=== PATIENT | female | born 1935 | race Caucasian/White ===

== ENCOUNTER 2017-08-30 13:02 | Emergency (ER) | payer MEDICARE, OTHER ==
[2017-08-30] MEDS ORDERED: Sodium Chloride 0.9% 10 ML Syringe FLUSH PRN (13:05)
[2017-08-30 13:55] LABS: CHLORIDE,CL 102 mmol/L (98-107); SODIUM,NA 140 mmol/L (136-145)
--- NOTE | 2017-08-30 15:15 | EDM.PDOC ---
ED HPI GENERAL MEDICAL PROBLEM - General Chief Complaint: General Stated Complaint: DIZZINESS Time Seen by Provider: 08/30/17 13:05 Source of Information: Reports: Patient, Family History Limitations: Reports: No Limitations - History of Present Illness INITIAL COMMENTS - FREE TEXT/NARRATIVE: Patient states she became dizzy today after bending over to gather some items when leaving [place]. She states she has had these episodes in the past. Also complains of cold hands that turn blue which started over the weekend and have done this 1-2 other times since. Relays history of [place] 7 years ago. Takes medication for HTN, hypercholesterolemia, hypothyroid. Surgical history includes hysterectomy with both ovaries left. No removal of gall bladder or appendix. No smoking or illegal drugs. Does drink 1-2 glasses of wine nightly. No complaints of chest pain or SOB. Denies all other symptoms. Onset: Today, Sudden Duration: Improving Severity: Moderate - Related Data Allergies Allergy/AdvReac Type Severity Reaction Status Date / Time Unable to Assess Allergy Unverified 08/30/17 13:21 Home Meds: Home Meds . [Unable to Verify Home Med List] 08/30/17 [History] Past Medical History HEENT History: Reports: Cataract Cardiovascular History: Reports: High Cholesterol, Hypertension, [place] - Past Surgical History HEENT Surgical History: Reports: Adenoidectomy, Cataract Surgery, Tonsillectomy Female Surgical History: Reports: Hysterectomy Musculoskeletal Surgical History: Reports: Knee Replacement Social & Family History - Tobacco Use Smoking Status *Q: Never Smoker - Alcohol Use Days Per Week of Alcohol Use: 5 Number of Drinks Per Day: 2 Total Drinks Per Week: 10 - Recreational Drug Use Recreational Drug Use: No ED ROS GENERAL - Review of Systems Review Of Systems: See Below Constitutional: Reports: No Symptoms HEENT: Reports: No Symptoms Respiratory: Reports: No Symptoms Cardiovascular: Reports: No Symptoms Endocrine: Reports: No Symptoms GI/Abdominal: Reports: No Symptoms : Reports: No Symptoms Musculoskeletal: Reports: No Symptoms Skin: Reports: No Symptoms Neurological: Reports: Dizziness Psychiatric: Reports: No Symptoms Hematologic/Lymphatic: Reports: No Symptoms Immunologic: Reports: No Symptoms ED EXAM, DIZZINESS - Physical Exam Exam: See Below Exam Limited By: No Limitations General Appearance: Alert Eye Exam: Bilateral Eye: EOMI, PERRL Ears: Normal TMs Nose: Normal Inspection, Normal Mucosa, No Blood Throat/Mouth: Normal Inspection, Normal Lips, Normal Teeth, Normal Gums, Normal Oropharynx, Normal Voice, No Airway Compromise Head Exam: Atraumatic, Normocephalic Neck: Normal Inspection, Supple, Non-Tender, Full Range of Motion Respiratory/Chest: No Respiratory Distress, Lungs Clear, Normal Breath Sounds, No Accessory Muscle Use, Chest Non-Tender Cardiovascular: Normal Peripheral Pulses, Regular Rate, Rhythm, No Edema, No Gallop, No JVD, No Murmur, No Rub GI/Abdominal: Normal Bowel Sounds, Soft, Non-Tender, No Organomegaly, No Distention, No Abnormal Bruit, No Mass Neurological: Alert, Normal Mood/Affect, Normal Dorsiflexion, CN II-XII Intact, Normal Plantar Flexion, Normal Gait, Normal Reflexes, No Motor/Sensory Deficits , Oriented x 3 DTR: 2+: Patella (R), Patella (L), Achilles (R), Achilles (L) Back Exam: Normal Inspection, Full Range of Motion, NT Extremities: Normal Inspection, Normal Range of Motion, Non-Tender, No Pedal Edema, Normal Capillary Refill Psychiatric: Normal Affect, Normal Mood Skin Exam: Warm, Dry, Intact, Normal Color, No Rash EKG INTERPRETATION EKG Date: 08/30/17 Time: 13:10 Rhythm: NSR Rate (Beats/Min): 60 [place]: Normal P-Wave: Present QRS: Normal ST-T: Depressed QT: Normal Comparison: NA - No Prior EKG EKG Interpretation Comments: 1. Sinus rhythm 2. minimal ST segment depression 3. Borderline ECG Course - Vital Signs Last Recorded V/S: Last Vital Signs Temp 36.1 C 08/30/17 13:02 Pulse 62 08/30/17 13:02 Resp 16 08/30/17 13:02 BP 136/70 08/30/17 13:02 Pulse Ox 97 08/30/17 13:02 - Orders/Labs/Meds Orders: Active Orders 24 hr Category Date Time Status EKG Documentation Completion [RC] ROUTINE Care 08/30/17 13:05 Ordered Sodium Chloride 0.9% [Saline Flush] Med 08/30/17 13:05 Ordered 10 ml FLUSH ASDIRECTED PRN Saline Lock Insert [OM.PC] Routine Oth 08/30/17 13:05 Ordered Medication Orders Sodium Chloride (Saline Flush) 10 ml FLUSH ASDIRECTED PRN PRN Reason: Keep Vein Open Labs: Laboratory Tests 08/30/17 08/30/17 Range/Units 13:20 13:20 WBC 9.3 (4.0-10.0) x10^3/uL RBC 3.77 L (4.00-5.50) x10^6/uL Hgb 11.6 L (12.0-16.0) g/dL Hct 36.9 (33.0-47.0) % MCV 97.9 H (78.0-93.0) fL MCH 30.8 (26.0-32.0) pg MCHC 31.4 L (32.0-36.0) g/dL RDW Coeff of Swapnil 14.4 (10.0-15.0) % Plt Count 331 (130-400) x10^3/uL Neut % (Auto) 63.0 (50.0-80.0) % Lymph % (Auto) 20.1 L (25.0-50.0) % [place] % (Auto) 11.0 (2.0-11.0) % Eos % (Auto) 5.0 H (0.0-4.0) % Baso % (Auto) 0.9 (0.2-1.2) % Sodium 140 (136-145) mmol/L Potassium 4.0 (3.5-5.1) mmol/L Chloride 102 (98-107) mmol/L Carbon Dioxide 28 (21-32) mmol/L BUN 18 (7-18) mg/dL Creatinine 0.9 (0.55-1.02) mg/dL Est Cr Clr Drug Dosing 48.48 mL/min Estimated GFR (MDRD) > 60 Glucose 139 H (74-106) mg/dL Calcium 8.8 (8.5-10.1) mg/dL Corrected Calcium 8.72 (8.5-10.1) mg/dL Total Bilirubin 0.3 (0.2-1.0) mg/dL AST 21 (15-37) U/L ALT 24 (14-59) U/L Alkaline Phosphatase 71 (46-116) U/L Troponin I < 0.017 (<=0.056) ng/mL NT-Pro-B Natriuret Pep 410 (<=450) pg/mL Total Protein 7.4 (6.4-8.2) g/dL Albumin 4.1 (3.4-5.0) g/dL Globulin 3.3 Albumin/Globulin Ratio 1.24 Meds: Medications Generic Name Dose Route Start Last Admin Trade Name Esther PRN Reason Stop Dose Admin Sodium Chloride 10 ml 08/30/17 13:05 Saline Flush FLUSH ASDIRECTED PRN Keep Vein Open Departure - Departure Time of Disposition: 15:15 Disposition: Home, Self-Care 01 Condition: Good Clinical Impression: Dizziness - Discharge Information Instructions: Orthostatic Hypotension Referrals: Cinthia Holloway, [Primary Care Provider] - Forms: ED Department Discharge Additional Instructions: I would recommend that you follow up with Dr. Holloway for any additional symptoms. Stay well hydrated. Your labs and values were all non emergent today. Please call with any questions or concerns. - Problem List & Annotations (1) Dizziness SNOMED Code(s): 180549538 Code(s): R42 - DIZZINESS AND GIDDINESS Status: Acute Priority: Low Current Visit: Yes - Problem List Review Problem List Initiated/Reviewed/Updated: Yes - My Orders Last 24 Hours: My Active Orders 08/30/17 13:05 EKG Documentation Completion [RC] ROUTINE Sodium Chloride 0.9% [Saline Flush] 10 ml FLUSH ASDIRECTED PRN Saline Lock Insert [OM.PC] Routine - Assessment/Plan Last 24 Hours: My Active Orders 08/30/17 13:05 EKG Documentation Completion [RC] ROUTINE Sodium Chloride 0.9% [Saline Flush] 10 ml FLUSH ASDIRECTED PRN Saline Lock Insert [OM.PC] Routine Assessment:: orthostatic hypotension Plan: I would recommend that you follow up with Dr. Holloway for any additional symptoms. Stay well hydrated. Your labs and values were all non emergent today. Please call with any questions or concerns.
== END 2017-08-30 15:40 | disposition home or self-care (01) ==
LOC: VM.ED 13:02
DX: I95.1 Orthostatic hypotension (principal); I10 Essential (primary) hypertension; I25.2 Old myocardial infarction; E78.00 Pure hypercholesterolemia, unspecified; E03.9 Hypothyroidism, unspecified
CPT/HCPCS: 36415; 80053; 83880; 84484; 85025; 93005; 99283-GF; 99284

== ENCOUNTER 2019-01-06 17:31 | Emergency (ER) | payer MEDICARE, OTHER ==
--- NOTE | 2019-01-06 18:07 | EDM.PDOC ---
ED HPI GENERAL MEDICAL PROBLEM - General Chief Complaint: Upper Extremity Injury/Pain Stated Complaint: FALL Time Seen by Provider: 01/06/19 17:45 Source of Information: Reports: Patient History Limitations: Reports: No Limitations - History of Present Illness INITIAL COMMENTS - FREE TEXT/NARRATIVE: Pt. presents to ER with complaints of L shoulder pain. Pt. states that she was walking down an embankment and landed on the lateral aspect of the shoulder. Denies striking head. No neck pain. Pt. states that her discomfort is located primarily in the mid humeral region and anterior shoulder. She has increased pain with movement of the joint. No numbness/tingling in the extremity. No pain/ deformity to the elbow, forearm, wrist, or hand. Pt. also complained of some mild, L sided anterior lower rib pain. Denies any shortness of breath. No abdominal pain. No pelvic pain. She was able to ambulate without difficulty. Onset: Today Onset Date: 01/06/19 Location: Reports: Upper Extremity, Left Quality: Reports: Ache, Throbbing Severity: Moderate Improves with: Reports: Rest Worsens with: Reports: Movement Left Shoulder Pain Score (Numeric/FACES): 9 - Related Data Allergies Allergy/AdvReac Type Severity Reaction Status Date / Time cefaclor [From Ceclor] Allergy Rash Verified 01/06/19 18:13 clarithromycin [From Biaxin] Allergy Rash Verified 01/06/19 18:13 clindamycin Allergy Rash Verified 01/06/19 18:13 hydrochlorothiazide Allergy Rash Verified 01/06/19 18:13 nitrofurantoin Allergy Rash Verified 01/06/19 18:13 [From Macrodantin] Sulfa (Sulfonamide Allergy Wheezing Verified 01/06/19 18:13 Antibiotics) bee stings Allergy Hives Uncoded 01/06/19 18:13 Home Meds: Home Meds Aspirin 81 mg DAILY 01/06/19 [History] Budesonide/Formoterol [Symbicort 80-4.5 MCG] 2 puff INH BID 01/06/19 [History] Calcium Citrate/Vitamin D3 [Calcium Citrate - Vit D3 Tab] 1 cap BID 01/06/19 [ History] Cetirizine [ZyrTEC] 10 mg DAILY 01/06/19 [History] Citalopram [Citalopram HBr] 20 mg DAILY 01/06/19 [History] Ferrous Sulfate 325 mg DAILY 01/06/19 [History] Furosemide 10 mg DAILY 01/06/19 [History] Gabapentin [Neurontin] 100 mg BID 01/06/19 [History] Gabapentin [Neurontin] 300 mg BEDTIME 01/06/19 [History] Ketoconazole [Nizoral 2% Crm] 1 applic DAILY 01/06/19 [History] Levothyroxine 75 mcg DAILY 01/06/19 [History] Simvastatin 20 mg DAILY 01/06/19 [History] tiZANidine HCl [Tizanidine HCl] 2 mg TID PRN 01/06/19 [History] Past Medical History HEENT History: Reports: Cataract Cardiovascular History: Reports: High Cholesterol, Hypertension, [place] - Past Surgical History HEENT Surgical History: Reports: Adenoidectomy, Cataract Surgery, Tonsillectomy Female Surgical History: Reports: Hysterectomy Musculoskeletal Surgical History: Reports: Knee Replacement Social & Family History - Tobacco Use Smoking Status *Q: Never Smoker - Alcohol Use Days Per Week of Alcohol Use: 5 Number of Drinks Per Day: 2 Total Drinks Per Week: 10 - Recreational Drug Use Recreational Drug Use: No Review of Systems - Review of Systems Review Of Systems: See Below Constitutional: Reports: No Symptoms Eyes: Reports: No Symptoms Ears: Reports: No Symptoms Nose: Reports: No Symptoms Mouth/Throat: Reports: No Symptoms Respiratory: Reports: No Symptoms Cardiovascular: Reports: No Symptoms GI/Abdominal: Reports: No Symptoms Genitourinary: Reports: No Symptoms Musculoskeletal: Reports: Shoulder Pain, Arm Pain Skin: Reports: No Symptoms Neurological: Reports: No Symptoms Psychiatric: Reports: No Symptoms ED EXAM, GENERAL - Physical Exam Exam: See Below Exam Limited By: No Limitations General Appearance: Alert, WD/WN, No Apparent Distress Eye Exam: Bilateral Eye: EOMI Nose: Normal Inspection Head: Atraumatic, Normocephalic Neck: Normal Inspection, Supple, Non-Tender, Full Range of Motion. No: Tender Lateral, Tender Midline Respiratory/Chest: No Respiratory Distress Course - Vital Signs Last Recorded V/S: Last Vital Signs Temp 36.8 C 01/06/19 17:31 Pulse 67 01/06/19 17:31 Resp 16 01/06/19 17:31 BP 171/66 H 01/06/19 17:31 Pulse Ox 100 01/06/19 17:31 - Orders/Labs/Meds Orders: Active Orders 24 hr Category Date Time Status Chest 1V Frontal [CR] Stat Exams 01/06/19 18:39 Ordered Acetaminophen/HYDROcodone [Take Home: Acetam/HYDROcodon Med 01/06/19 19:02 Once 325-5 MG, 5 Pack] 1 packet PO ONETIME ONE Medication Orders Hydrocodone Bitart/Acetaminophen (Take Home: Acetam/Hydrocodon 325-5 Mg, 5 Pack ) 1 packet PO ONETIME ONE Stop: 01/06/19 19:03 Meds: Medications Generic Name Dose Route Start Last Admin Trade Name Freq PRN Reason Stop Dose Admin Hydrocodone Bitart/Acetaminophen 1 packet 01/06/19 19:02 Take Home: Acetam/Hydrocodon 325-5 Mg, 5 Pack PO 01/06/19 19:03 ONETIME ONE - Radiology Interpretation Free Text/Narrative:: Comminuted Humeral neck fx. and possible clavicle fracture. Departure - Departure Time of Disposition: 19:04 Disposition: Home, Self-Care 01 Condition: Good Clinical Impression: Fracture of humerus - Discharge Information Instructions: Humerus Fracture Treated With Immobilization, [id number] Referrals: Cinthia Holloway DO [Primary Care Provider] - Forms: ED Department Discharge Additional Instructions: [place] 5/325mg 1 tab every 4-6 hours as needed for pain Keep shoulder immobilizer on even at night. You can take it off to shower but do not move the shoulder. I am setting you up an appointment with [facility] and the clinic will contact you tomorrow with an appointment date and time. - My Orders Last 24 Hours: My Active Orders 01/06/19 18:39 Chest 1V Frontal [CR] Stat 01/06/19 19:02 Acetaminophen/HYDROcodone [Take Home: Acetam/HYDROcodon 325-5 MG, 5 Pack] 1 packet PO ONETIME ONE - Assessment/Plan Last 24 Hours: My Active Orders 01/06/19 18:39 Chest 1V Frontal [CR] Stat 01/06/19 19:02 Acetaminophen/HYDROcodone [Take Home: Acetam/HYDROcodon 325-5 MG, 5 Pack] 1 packet PO ONETIME ONE Plan: Sharon 5/325mg 1 tab every 4-6 hours as needed for pain Keep shoulder immobilizer on even at night. You can take it off to shower but do not move the shoulder. I am setting you up an appointment with [facility] and the clinic will contact you tomorrow with an appointment date and time.
--- NOTE | 2019-01-06 18:41 | CR ---
[id number] RAD/RAD Humerus Left 2V EXAM: RAD Humerus Left 2V CLINICAL DATA: TRAUMA COMPARISON: NO PREVIOUS SIMILAR EXAM IS AVAILABLE. FINDINGS: A comminuted impacted left humeral neck fracture is seen with also an apparent distal left clavicular fracture. IMPRESSION: IMPACTED DEFINITE COMMINUTED LEFT HUMERAL NECK FRACTURE. QUESTION OF DISTAL LEFT CLAVICULAR FRACTURE VERSUS SOFT TISSUES MIMICKING SUCH. Rohit Pierre MD 01/06/19 1993 Thank you for allowing us to participate in the care of your patient.
--- NOTE | 2019-01-06 18:42 | CR ---
[id number] RAD/RAD Shoulder Left 2V Min EXAM: RAD Shoulder Left 2V Min CLINICAL DATA: TRAUMA COMPARISON: NO PREVIOUS SIMILAR EXAM IS AVAILABLE. FINDINGS: There is no definite distal left clavicular fracture. There is however an comminuted impacted left humeral neck fracture.. IMPRESSION: LEFT HUMERAL NECK FRACTURE ONLY. Rohit Pierre MD 01/06/19 [id number] Thank you for allowing us to participate in the care of your patient.
[2019-01-06] MEDS ORDERED: Take Home: Acetaminophen/HYDROcodone 325-5 MG, 5 Tab Pack PO ONE (19:02)
--- NOTE | 2019-01-06 19:43 | CR ---
[id number] RAD/RAD Chest PA or AP 1V EXAM: SINGLE VIEW CHEST. INDICATION: TRAUMA. RIB PAIN COMPARISON: CORRELATION IS MADE WITH THE EXAM OF SEPTEMBER 06, 2017. FINDINGS: The lungs are clear. There is no pneumothorax. The cardiomediastinal contour is stable. No obvious recent rib fractures are seen. IMPRESSION: NO ACUTE PROCESS. Rohit Pierre MD 01/06/19 1945 Thank you for allowing us to participate in the care of your patient.
== END 2019-01-06 19:30 | disposition home or self-care (01) ==
LOC: VM.ED 17:31
DX: S42.352A Displaced comminuted fracture of shaft of humerus, left arm, initial encounter for closed fracture (principal); E78.00 Pure hypercholesterolemia, unspecified; I10 Essential (primary) hypertension; I25.2 Old myocardial infarction; Z88.8 Allergy status to other drugs, medicaments and biological substances; Z88.1 Allergy status to other antibiotic agents; Z79.899 Other long term (current) drug therapy; Z79.82 Long term (current) use of aspirin; W18.39XA Other fall on same level, initial encounter
CPT/HCPCS: 71045; 73030; 73060; 99284; A9270

== ENCOUNTER 2024-01-15 08:51 | Emergency (ER) | payer MEDICARE, OTHER ==
[2024-01-15 09:32] LABS: BASOPHILS ABSOLUTE AUTO 0.1 x10^3/uL (0.0-0.2); EOSINOPHILS ABSOLUTE AUTO 0.6 x10^3/uL (0.0-0.5); EOSINOPHILS PERCENT AUTO 5.9 % (0.0-4.0); HEMATOCRIT 35.8 % (33.0-47.0); HEMOGLOBIN 11.7 g/dL (12.0-16.0); IMMATURE GRAN ABSOLUTE AUTO 0.03 x10^3/uL (0.00-0.07); LYMPHOCYTES ABSOLUTE AUTO 1.6 x10^3/uL (1.0-4.8); LYMPHOCYTES PERCENT AUTO 15.6 % (25.0-50.0); MEAN CORPUSCULAR HEMOGLOBIN 30.5 pg (26.0-32.0); MEAN CORPUSCULAR HGB CONC 32.7 g/dL (32.0-36.0); MEAN CORPUSCULAR VOLUME 93.2 fL (78.0-93.0); MONOCYTES ABSOLUTE AUTO 1.1 x10^3/uL (0.0-0.8); MONOCYTES PERCENT AUTO 11.4 % (2.0-11.0); NEUTROPHILS ABSOLUTE AUTO 6.6 x10^3/uL (1.8-7.7); NEUTROPHILS PERCENT AUTO 65.8 % (50.0-80.0); PLATELET COUNT,PLT 381 x10^3/uL (130-400); RED BLOOD CELL COUNT 3.84 x10^6/uL (4.00-5.50)
[2024-01-15] MEDS: Albuterol/Ipratropium 3.0-0.5 MG/3 ML Neb Soln NEB ONE (09:41)
[2024-01-15 09:43] LABS: ANION GAP 11.6 mmol/L (5-15); BLOOD UREA NITROGEN,BUN 10 mg/dL (7-18); CALCIUM 9.6 mg/dL (8.5-10.1); CARBON DIOXIDE,CO2 30 mmol/L (21-32); CHLORIDE,CL 103 mmol/L (98-107); CREATININE 0.9 mg/dL (0.55-1.02); ESTIMATED GFR 62 mL/min (>=60); GLUCOSE RANDOM 129 mg/dL (70-99); POTASSIUM,K 3.6 mmol/L (3.5-5.1); SODIUM,NA 141 mmol/L (136-145)
[2024-01-15] MEDS: predniSONE 20 MG Tab PO ONE (10:57)
[2024-01-15] MEDS: Amoxicillin/Clavulanate K 875-125 MG Tab PO ONE (10:57)
[2024-01-16] MEDS ORDERED: predniSONE 20 MG Tab PO ONE (10:50)
== END 2024-01-15 11:09 | disposition home or self-care (01) ==
LOC: VM.ED 08:51
DX: J44.1 Chronic obstructive pulmonary disease with (acute) exacerbation (principal); I10 Essential (primary) hypertension; I25.10 Atherosclerotic heart disease of native coronary artery without angina pectoris; E78.00 Pure hypercholesterolemia, unspecified; I25.2 Old myocardial infarction; J44.9 Chronic obstructive pulmonary disease, unspecified; E03.9 Hypothyroidism, unspecified; Z90.710 Acquired absence of both cervix and uterus; Z79.82 Long term (current) use of aspirin; Z79.899 Other long term (current) drug therapy; Z79.890 Hormone replacement therapy; Z79.2 Long term (current) use of antibiotics; Z79.51 Long term (current) use of inhaled steroids; Z88.0 Allergy status to penicillin; Z88.1 Allergy status to other antibiotic agents; Z91.030 Bee allergy status; Z88.8 Allergy status to other drugs, medicaments and biological substances
CPT/HCPCS: 71046; 80048; 83605; 85025; 99285; A9270; J7512; J7620-GY

== ENCOUNTER 2024-09-11 13:54 | Inpatient (IN) | payer MEDICARE, OTHER ==
[2024-09-11] MEDS ORDERED: Sodium Chloride 0.9% 10 ML Syringe FLUSH PRN (14:20)
[2024-09-11] MEDS: Albuterol/Ipratropium 3.0-0.5 MG/3 ML Neb Soln NEB ONE (14:22)
[2024-09-11 14:31] LABS: BASOPHILS PERCENT AUTO 0.1 % (0.2-1.2); EOSINOPHILS ABSOLUTE AUTO 0.1 x10^3/uL (0.0-0.5); EOSINOPHILS PERCENT AUTO 0.3 % (0.0-4.0); HEMATOCRIT 34.2 % (33.0-47.0); HEMOGLOBIN 11.5 g/dL (12.0-16.0); IMMATURE GRAN ABSOLUTE AUTO 0.02 x10^3/uL (0.00-0.07); LYMPHOCYTES ABSOLUTE AUTO 0.7 x10^3/uL (1.0-4.8); LYMPHOCYTES PERCENT AUTO 4.7 % (25.0-50.0); MEAN CORPUSCULAR HEMOGLOBIN 31.3 pg (26.0-32.0); MEAN CORPUSCULAR HGB CONC 33.6 g/dL (32.0-36.0); MEAN CORPUSCULAR VOLUME 92.9 fL (78.0-93.0); MONOCYTES ABSOLUTE AUTO 0.6 x10^3/uL (0.0-0.8); MONOCYTES PERCENT AUTO 3.9 % (2.0-11.0); NEUTROPHILS ABSOLUTE AUTO 13.5 x10^3/uL (1.8-7.7); NEUTROPHILS PERCENT AUTO 90.9 % (50.0-80.0); PLATELET COUNT,PLT 308 x10^3/uL (130-400); RED BLOOD CELL COUNT 3.68 x10^6/uL (4.00-5.50); WHITE BLOOD CELL COUNT,WBC 14.9 x10^3/uL (4.0-10.0)
[2024-09-11 14:48] LABS: A/G RATIO 0.95; ALANINE AMINOTRANSFERASE,ALT 23 U/L (14-59); ALBUMIN 3.6 g/dL (3.4-5.0); ALKALINE PHOSPHATASE 72 U/L (46-116); ANION GAP 17.8 mmol/L (5-15); ASPARTATE AMNIOTRANSFERASE,AST 26 U/L (15-37); BILIRUBIN TOTAL 0.7 mg/dL (0.2-1.0); BLOOD UREA NITROGEN,BUN 14 mg/dL (7-18); CALCIUM 9.4 mg/dL (8.5-10.1); CARBON DIOXIDE,CO2 24 mmol/L (21-32); CHLORIDE,CL 99 mmol/L (98-107); CREATININE 0.8 mg/dL (0.55-1.02); ESTIMATED GFR 71 mL/min (>=60); GLUCOSE RANDOM 167 mg/dL (70-99); MAGNESIUM 1.9 mg/dL (1.8-2.4); POTASSIUM,K 3.8 mmol/L (3.5-5.1); PROTEIN TOTAL,TP 7.4 g/dL (6.4-8.2); SODIUM,NA 137 mmol/L (136-145)
[2024-09-11 15:48] LABS: APPEARANCE,URINE CLEAR (CLEAR); BILIRUBIN,URINE NEGATIVE (NEGATIVE); COLOR,URINE YELLOW (YELLOW); GLUCOSE,URINE NEGATIVE (NEGATIVE); KETONES,URINE NEGATIVE (NEGATIVE); LEUKOCYTE ESTERASE,URINE NEGATIVE (NEGATIVE); NITRITE,URINE NEGATIVE (NEGATIVE); OCCULT BLOOD,URINE NEGATIVE (NEGATIVE); PROTEIN,URINE TRACE mg/dL (NEGATIVE); UROBILINOGEN,URINE 0.2 EU/dL (0.2)
[2024-09-11] MEDS: Sodium Chloride 0.9% 1,000 ML IV SCH (15:49)
[2024-09-11 15:50] LABS: BACTERIA,URINE RARE /HPF (NOT SEEN); MUCUS,URINE FEW /LPF (NOT SEEN); RBC,URINE 0-5 /HPF (NOT SEEN); SQUAMOUS EPITHELIAL CELLS,UR OCCASIONAL /HPF (NOT SEEN); WBC,URINE 0-5 /HPF (NOT SEEN)
[2024-09-11] MEDS: Levofloxacin 500 MG Tab PO SCH (18:00)
[2024-09-11] MEDS: Arformoterol 15 MCG/2 ML Neb Soln NEB SCH (18:15)
[2024-09-11] MEDS: methylPREDNISolone Sodium Succinate 40 MG/1 ML SDV IVPUSH SCH ×2 (18:25→18:39)
[2024-09-11] MEDS: Albuterol/Ipratropium 3.0-0.5 MG/3 ML Neb Soln NEB PRN (18:26)
[2024-09-11] MEDS ORDERED: QUEtiapine 25 MG Tab PO PRN (18:52)
[2024-09-11] MEDS ORDERED: Oseltamivir 75 MG Cap PO SCH ×2 (21:00)
[2024-09-11] MEDS: Acetaminophen 500 MG Tab PO PRN (21:35)
[2024-09-11] MEDS: Oseltamivir 30 MG Cap PO SCH (21:36)
[2024-09-11] MEDS: Gabapentin 300 MG Cap PO SCH (21:36)
[2024-09-11] MEDS: ALPRAZolam 0.25 MG Tab PO PRN (23:06)
[2024-09-12 06:56] LABS: BASOPHILS PERCENT AUTO 0.2 % (0.2-1.2); EOSINOPHILS PERCENT AUTO 0.1 % (0.0-4.0); HEMATOCRIT 30.2 % (33.0-47.0); IMMATURE GRAN ABSOLUTE AUTO 0.02 x10^3/uL (0.00-0.07); LYMPHOCYTES ABSOLUTE AUTO 0.6 x10^3/uL (1.0-4.8); MEAN CORPUSCULAR HEMOGLOBIN 31.2 pg (26.0-32.0); MEAN CORPUSCULAR HGB CONC 33.1 g/dL (32.0-36.0); MEAN CORPUSCULAR VOLUME 94.1 fL (78.0-93.0); MONOCYTES ABSOLUTE AUTO 0.9 x10^3/uL (0.0-0.8); MONOCYTES PERCENT AUTO 8.9 % (2.0-11.0); NEUTROPHILS PERCENT AUTO 84.6 % (50.0-80.0); PLATELET COUNT,PLT 268 x10^3/uL (130-400); RED BLOOD CELL COUNT 3.21 x10^6/uL (4.00-5.50); WHITE BLOOD CELL COUNT,WBC 10.6 x10^3/uL (4.0-10.0)
[2024-09-12 07:12] LABS: CALCIUM 8.7 mg/dL (8.5-10.1); CREATININE 0.6 mg/dL (0.55-1.02); EST CRCL DRUG DOSING (CG) 64.24 mL/min; POTASSIUM,K 4.1 mmol/L (3.5-5.1)
[2024-09-12 07:13] LABS: ANION GAP 14.1 mmol/L (5-15)
[2024-09-12] MEDS ORDERED: Loratadine 10 MG Tab PO PRN (09:17)
[2024-09-12] MEDS: Enoxaparin 40 MG/0.4 ML Syringe SUBCUT SCH (09:17)
[2024-09-12] MEDS: Doxycycline Monohydrate 100 MG Cap PO SCH (09:39)
[2024-09-12] MEDS: Citalopram 20 MG Tab PO SCH (09:39)
[2024-09-12] MEDS: Calcium Citrate/Vitamin D3 315 MG-250 Unit Tab PO SCH (18:08)
[2024-09-12] MEDS: atorvaSTATin 10 MG Tab PO SCH (20:58)
[2024-09-13] MEDS: Levothyroxine 75 MCG Tab PO SCH (06:21)
[2024-09-13 08:04] LABS: EOSINOPHILS ABSOLUTE AUTO 0.1 x10^3/uL (0.0-0.5); EOSINOPHILS PERCENT AUTO 0.5 % (0.0-4.0); HEMATOCRIT 33.5 % (33.0-47.0); HEMOGLOBIN 11.1 g/dL (12.0-16.0); IMMATURE GRAN ABSOLUTE AUTO 0.02 x10^3/uL (0.00-0.07); LYMPHOCYTES PERCENT AUTO 6.8 % (25.0-50.0); MEAN CORPUSCULAR HEMOGLOBIN 30.9 pg (26.0-32.0); MEAN CORPUSCULAR HGB CONC 33.1 g/dL (32.0-36.0); MEAN CORPUSCULAR VOLUME 93.3 fL (78.0-93.0); MONOCYTES ABSOLUTE AUTO 0.9 x10^3/uL (0.0-0.8); MONOCYTES PERCENT AUTO 6.4 % (2.0-11.0); NEUTROPHILS ABSOLUTE AUTO 12.6 x10^3/uL (1.8-7.7); NEUTROPHILS PERCENT AUTO 86.2 % (50.0-80.0); PLATELET COUNT,PLT 359 x10^3/uL (130-400); RED BLOOD CELL COUNT 3.59 x10^6/uL (4.00-5.50); WHITE BLOOD CELL COUNT,WBC 14.6 x10^3/uL (4.0-10.0)
[2024-09-13 08:11] LABS: CALCIUM 9.5 mg/dL (8.5-10.1); CREATININE 0.7 mg/dL (0.55-1.02); EST CRCL DRUG DOSING (CG) 55.06 mL/min; POTASSIUM,K 3.6 mmol/L (3.5-5.1)
[2024-09-13 08:12] LABS: ANION GAP 15.6 mmol/L (5-15)
[2024-09-13] MEDS: Folic Acid 0.4 MG Tab PO SCH (09:05)
[2024-09-13] MEDS: Furosemide 20 MG Tab PO SCH (12:04)
[2024-09-14] MEDS: Losartan 25 MG Tab PO SCH (10:46)
[2024-09-15 07:04] LABS: BASOPHILS PERCENT AUTO 0.1 % (0.2-1.2); EOSINOPHILS PERCENT AUTO 0.2 % (0.0-4.0); HEMATOCRIT 33.4 % (33.0-47.0); HEMOGLOBIN 11.1 g/dL (12.0-16.0); LYMPHOCYTES ABSOLUTE AUTO 1.3 x10^3/uL (1.0-4.8); LYMPHOCYTES PERCENT AUTO 8.5 % (25.0-50.0); MEAN CORPUSCULAR HEMOGLOBIN 30.9 pg (26.0-32.0); MEAN CORPUSCULAR HGB CONC 33.2 g/dL (32.0-36.0); MONOCYTES PERCENT AUTO 6.4 % (2.0-11.0); NEUTROPHILS ABSOLUTE AUTO 13.1 x10^3/uL (1.8-7.7); NEUTROPHILS PERCENT AUTO 84.2 % (50.0-80.0); PLATELET COUNT,PLT 419 x10^3/uL (130-400); RED BLOOD CELL COUNT 3.59 x10^6/uL (4.00-5.50); WHITE BLOOD CELL COUNT,WBC 15.6 x10^3/uL (4.0-10.0)
[2024-09-15 07:14] LABS: ANION GAP 12.9 mmol/L (5-15); CREATININE 0.8 mg/dL (0.55-1.02); EST CRCL DRUG DOSING (CG) 48.18 mL/min; POTASSIUM,K 3.9 mmol/L (3.5-5.1)
[2024-09-15] MEDS: predniSONE 20 MG Tab PO SCH (09:18)
[2024-09-15] MEDS: Furosemide 20 MG Tab PO SCH (09:18)
[2024-09-17] MEDS ORDERED: Cyanocobalamin (Vitamin B12) 1,000 MCG/ML SDV IM SCH (09:00)
== END 2024-09-15 09:40 | disposition home or self-care (01) | DRG 202 ==
LOC: VM.ED 13:54 → VM.MS 15:52
PROVIDERS: ADMIT Internal Medicine; ATTEND Internal Medicine
DX: J45.41 Moderate persistent asthma with (acute) exacerbation (principal); E87.20 Acidosis, unspecified; J10.1 Influenza due to other identified influenza virus with other respiratory manifestations; Z66 Do not resuscitate; H91.90 Unspecified hearing loss, unspecified ear; I25.10 Atherosclerotic heart disease of native coronary artery without angina pectoris; E78.00 Pure hypercholesterolemia, unspecified; I10 Essential (primary) hypertension; J44.9 Chronic obstructive pulmonary disease, unspecified; M19.90 Unspecified osteoarthritis, unspecified site; M06.9 Rheumatoid arthritis, unspecified; E03.9 Hypothyroidism, unspecified; Z96.659 Presence of unspecified artificial knee joint; R44.1 Visual hallucinations; Z91.030 Bee allergy status; R73.03 Prediabetes; E78.5 Hyperlipidemia, unspecified; D64.9 Anemia, unspecified; Z88.8 Allergy status to other drugs, medicaments and biological substances; Z88.1 Allergy status to other antibiotic agents; Z88.2 Allergy status to sulfonamides; Z79.82 Long term (current) use of aspirin; Z79.899 Other long term (current) drug therapy; Z79.2 Long term (current) use of antibiotics; I25.2 Old myocardial infarction; Z90.89 Acquired absence of other organs; Z98.49 Cataract extraction status, unspecified eye; Z90.710 Acquired absence of both cervix and uterus
CPT/HCPCS: 36415; 71046; 80048; 80053; 81001; 82947; 83605; 83735; 84145; 85025; 86140; 87040; 94640; 97162-GP; 97165-GO; 97535-GO; 99284; 99285; A9270-GY; J1650; J2919; J3490; J7030; J7512; J7620-GY

== ENCOUNTER 2025-04-16 08:18 | Inpatient (IN) | payer MEDICARE, OTHER ==
[2025-04-16 08:47] LABS: BASOPHILS ABSOLUTE AUTO 0.0 x10^3/uL (0.0-0.2); BASOPHILS PERCENT AUTO 0.2 % (0.2-1.2); EOSINOPHILS ABSOLUTE AUTO 0.1 x10^3/uL (0.0-0.5); EOSINOPHILS PERCENT AUTO 0.3 % (0.0-4.0); IMMATURE GRAN ABSOLUTE AUTO 0.03 x10^3/uL (0.00-0.07); IMMATURE GRAN PERCENT AUTO 0.20 % (0.00-0.43); LYMPHOCYTES ABSOLUTE AUTO 1.1 x10^3/uL (1.0-4.8); LYMPHOCYTES PERCENT AUTO 5.6 % (25.0-50.0); MONOCYTES ABSOLUTE AUTO 1.6 x10^3/uL (0.0-0.8); MONOCYTES PERCENT AUTO 8.2 % (2.0-11.0); NEUTROPHILS ABSOLUTE AUTO 16.6 x10^3/uL (1.8-7.7); NEUTROPHILS PERCENT AUTO 85.5 % (50.0-80.0); RED BLOOD CELL COUNT 3.67 x10^6/uL (4.00-5.50); WHITE BLOOD CELL COUNT,WBC 19.5 x10^3/uL (4.0-10.0)
[2025-04-16 08:57] LABS: PLATELET COUNT,PLT 240 x10^3/uL (130-400)
[2025-04-16] MEDS: methylPREDNISolone Sodium Succinate 125 MG/2 ML SDV IV ONE (08:57)
[2025-04-16 09:05] LABS: INR 1.0 (0.9-1.1); PTT,PARTIAL THROMBOPLSTIN TIME 28.9 SEC (23.5-33.2)
[2025-04-16 09:07] LABS: A/G RATIO 1.19; ALANINE AMINOTRANSFERASE,ALT 20 U/L (14-59); ASPARTATE AMNIOTRANSFERASE,AST 23 U/L (15-37); BILIRUBIN TOTAL 0.6 mg/dL (0.2-1.0); BLOOD UREA NITROGEN,BUN 13 mg/dL (7-18); CARBON DIOXIDE,CO2 29 mmol/L (21-32); CHLORIDE,CL 102 mmol/L (98-107); CREATININE 1.0 mg/dL (0.55-1.02); ESTIMATED GFR 54 mL/min (>=60); GLUCOSE RANDOM 131 mg/dL (70-99); POTASSIUM,K 4.1 mmol/L (3.5-5.1); PROTEIN TOTAL,TP 6.8 g/dL (6.4-8.2); SODIUM,NA 140 mmol/L (136-145)
[2025-04-16 10:03] LABS: LACTIC ACID 1.4 mmol/L (0.4-2.0)
[2025-04-16] MEDS ORDERED: Ondansetron 4 MG Tab.DIS PO PRN (11:36)
[2025-04-16] MEDS: Albuterol 0.083% 2.5 MG/3 ML Neb Soln NEB PRN (12:24)
[2025-04-16] MEDS: Arformoterol 15 MCG/2 ML Neb Soln NEB SCH (15:00)
[2025-04-16] MEDS ORDERED: 50% Dextrose in Water 50 ML Syringe IVPUSH PRN (17:20)
[2025-04-16] MEDS: Calcium Citrate/Vitamin D3 315 MG-250 Unit Tab PO SCH (17:32)
[2025-04-16] MEDS: Insulin Glarg,Human.Rec.Analog 100 Unit/ML 10 ML Vial SUBCUT SCH (17:32)
[2025-04-16] MEDS: Budesonide 0.5 MG/2 ML Neb Susp NEB SCH (20:39)
[2025-04-16] MEDS: Fluticasone Propionate Nasal Spray 9.9 ML BOTTLE NASBOTH SCH (20:40)
[2025-04-17 06:47] LABS: PLATELET COUNT,PLT 227 x10^3/uL (130-400); RED BLOOD CELL COUNT 3.28 x10^6/uL (4.00-5.50)
[2025-04-17 06:50] LABS: WHITE BLOOD CELL COUNT,WBC 26.5 x10^3/uL (4.0-10.0)
[2025-04-17 06:53] LABS: BLOOD UREA NITROGEN,BUN 15.0 mg/dL (7-18); CARBON DIOXIDE,CO2 26.0 mmol/L (21-32); CHLORIDE,CL 103.0 mmol/L (98-107); CREATININE 0.9 mg/dL (0.55-1.02); EST CRCL DRUG DOSING (CG) 42.02 mL/min; ESTIMATED GFR 61.0 mL/min (>=60); GLUCOSE RANDOM 140.0 mg/dL (70-99); POTASSIUM,K 3.6 mmol/L (3.5-5.1); SODIUM,NA 140.0 mmol/L (136-145)
[2025-04-17 07:01] LABS: BAND PERCENT MAN 1 % (0-6); LYMPHOCYTES ABSOLUTE MAN 1.3 x10^3/uL (1.0-4.8); LYMPHOCYTES PERCENT MAN 5 % (25-50); MONOCYTES ABSOLUTE MAN 1.3 x10^3/uL (0.0-0.8); MONOCYTES PERCENT MAN 5 % (2-11); NEUTROPHILS ABSOLUTE MAN 23.9 x10^3/uL (1.8-7.7); PLATELET COUNT ESTIMATE ADEQUATE; SEG NEUTROPHILS PERCENT MAN 89 % (50-80)
[2025-04-17] MEDS: Formoterol/Mometasone 100-5 MCG 8.8 GM Inhaler INH SCH (10:09)
[2025-04-17] MEDS: Sodium Chloride 0.9% 10 ML Syringe FLUSH PRN (20:37)
[2025-04-18 07:42] LABS: PLATELET COUNT,PLT 275 x10^3/uL (130-400); RED BLOOD CELL COUNT 3.30 x10^6/uL (4.00-5.50); WHITE BLOOD CELL COUNT,WBC 19.3 x10^3/uL (4.0-10.0)
[2025-04-18 07:56] LABS: BLOOD UREA NITROGEN,BUN 18.0 mg/dL (7-18); CARBON DIOXIDE,CO2 27.0 mmol/L (21-32); CHLORIDE,CL 108.0 mmol/L (98-107); CREATININE 0.8 mg/dL (0.55-1.02); EST CRCL DRUG DOSING (CG) 47.27 mL/min; GLUCOSE RANDOM 102.0 mg/dL (70-99); POTASSIUM,K 3.8 mmol/L (3.5-5.1); SODIUM,NA 142.0 mmol/L (136-145)
[2025-04-18 08:21] LABS: ESTIMATED GFR 71.0 mL/min (>=60)
[2025-04-18 08:22] LABS: BAND PERCENT MAN 2 % (0-6); LYMPHOCYTES ABSOLUTE MAN 1.5 x10^3/uL (1.0-4.8); LYMPHOCYTES PERCENT MAN 8 % (25-50); MONOCYTES ABSOLUTE MAN 0.6 x10^3/uL (0.0-0.8); MONOCYTES PERCENT MAN 3 % (2-11); NEUTROPHILS ABSOLUTE MAN 17.2 x10^3/uL (1.8-7.7); PLATELET COUNT ESTIMATE ADEQUATE; SEG NEUTROPHILS PERCENT MAN 87 % (50-80); VACUOLATED NEUTROPHILS 1+ SLIGHT
[2025-04-19 11:24] LABS: BASOPHILS ABSOLUTE AUTO 0.0 x10^3/uL (0.0-0.2); BASOPHILS PERCENT AUTO 0.2 % (0.2-1.2); EOSINOPHILS ABSOLUTE AUTO 0.2 x10^3/uL (0.0-0.5); EOSINOPHILS PERCENT AUTO 1.4 % (0.0-4.0); IMMATURE GRAN ABSOLUTE AUTO 0.04 x10^3/uL (0.00-0.07); IMMATURE GRAN PERCENT AUTO 0.30 % (0.00-0.43); LYMPHOCYTES ABSOLUTE AUTO 1.0 x10^3/uL (1.0-4.8); LYMPHOCYTES PERCENT AUTO 8.2 % (25.0-50.0); MONOCYTES ABSOLUTE AUTO 1.0 x10^3/uL (0.0-0.8); MONOCYTES PERCENT AUTO 8.0 % (2.0-11.0); NEUTROPHILS ABSOLUTE AUTO 10.2 x10^3/uL (1.8-7.7); NEUTROPHILS PERCENT AUTO 81.9 % (50.0-80.0); PLATELET COUNT,PLT 314 x10^3/uL (130-400); RED BLOOD CELL COUNT 3.69 x10^6/uL (4.00-5.50); WHITE BLOOD CELL COUNT,WBC 12.4 x10^3/uL (4.0-10.0)
[2025-04-20 06:43] LABS: BASOPHILS ABSOLUTE AUTO 0.0 x10^3/uL (0.0-0.2); BASOPHILS PERCENT AUTO 0.3 % (0.2-1.2); EOSINOPHILS ABSOLUTE AUTO 0.3 x10^3/uL (0.0-0.5); EOSINOPHILS PERCENT AUTO 2.7 % (0.0-4.0); IMMATURE GRAN ABSOLUTE AUTO 0.11 x10^3/uL (0.00-0.07); IMMATURE GRAN PERCENT AUTO 1.00 % (0.00-0.43); LYMPHOCYTES ABSOLUTE AUTO 2.2 x10^3/uL (1.0-4.8); LYMPHOCYTES PERCENT AUTO 19.0 % (25.0-50.0); MONOCYTES ABSOLUTE AUTO 1.3 x10^3/uL (0.0-0.8); MONOCYTES PERCENT AUTO 11.0 % (2.0-11.0); NEUTROPHILS ABSOLUTE AUTO 7.5 x10^3/uL (1.8-7.7); NEUTROPHILS PERCENT AUTO 66.0 % (50.0-80.0); PLATELET COUNT,PLT 289 x10^3/uL (130-400); RED BLOOD CELL COUNT 3.41 x10^6/uL (4.00-5.50); WHITE BLOOD CELL COUNT,WBC 11.4 x10^3/uL (4.0-10.0)
== END 2025-04-20 11:25 | disposition home or self-care (01) | DRG 193 ==
LOC: VM.ED 08:18 → VM.MS 09:49
PROVIDERS: ADMIT Internal Medicine; ATTEND Internal Medicine
DX: J18.9 Pneumonia, unspecified organism (principal); J96.01 Acute respiratory failure with hypoxia; J44.1 Chronic obstructive pulmonary disease with (acute) exacerbation; J20.9 Acute bronchitis, unspecified; H91.90 Unspecified hearing loss, unspecified ear; I25.10 Atherosclerotic heart disease of native coronary artery without angina pectoris; E78.00 Pure hypercholesterolemia, unspecified; I10 Essential (primary) hypertension; I25.2 Old myocardial infarction; K44.9 Diaphragmatic hernia without obstruction or gangrene; R73.9 Hyperglycemia, unspecified; M19.90 Unspecified osteoarthritis, unspecified site; M06.9 Rheumatoid arthritis, unspecified; F41.9 Anxiety disorder, unspecified; E03.9 Hypothyroidism, unspecified; R73.03 Prediabetes; K59.00 Constipation, unspecified; E53.8 Deficiency of other specified B group vitamins; E61.1 Iron deficiency; Z96.659 Presence of unspecified artificial knee joint; Z90.49 Acquired absence of other specified parts of digestive tract; Z88.2 Allergy status to sulfonamides; Z91.030 Bee allergy status; Z79.82 Long term (current) use of aspirin; Z88.8 Allergy status to other drugs, medicaments and biological substances; Z98.49 Cataract extraction status, unspecified eye; Z79.52 Long term (current) use of systemic steroids; Z79.899 Other long term (current) drug therapy; Z98.890 Other specified postprocedural states; Z90.710 Acquired absence of both cervix and uterus
CPT/HCPCS: 36415; 71045; 80048; 80053; 82947; 83605; 84484; 85025; 85610; 85730; 86140; 87040; 87428-QW; 93005; 93010; 94640; 94667; 94668; 96374; 96375; 97116-GP; 97161-GP; 97165-GO; 97535-GO; 99284; 99285-25; A9270-GY; J0696; J1650; J1815-GY; J2919; J3490; J7030; J7512